=== PATIENT | male | born 1955 | race Caucasian/White ===

== ENCOUNTER 2019-05-15 11:17 | Emergency (ER) | payer BC ==
[2019-05-15] MEDS ORDERED: HYDRALAZINE HCL 20 MG/ML VIAL ONE (11:42)
[2019-05-15 12:05] LABS: Absolute Lymphocytes (CBC) 1.3 K/uL (0.7-4.9); Basophils % 0.7 % (0-1.3); Hematocrit 41.5 % (39.6-49.0); Lymphocytes % 23.6 % (15.3-44.8); MPV 9.2 fL (7.6-11.3); RBC Red Blood Cell Count 4.57 M/uL (4.33-5.43)
[2019-05-15 12:07] LABS: Protime INR 0.98
--- NOTE | 2019-05-15 12:07 | RAD REPORT ---
EXAM DESCRIPTION: CT - Head Brain Wo Cont - 05/15/2019 11:52 am CLINICAL HISTORY: Alteration of awareness/confusion COMPARISON: None TECHNIQUE: Computed axial tomography of the head was obtained. IV contrast was not requested. All CT scans are performed using dose optimization technique as appropriate and may include automated exposure control or mA/KV adjustment according to patient size. FINDINGS: An intracranial bleed is not seen . The ventricles are normal in caliber. No extra-axial fluid collection is noted. Fluid within the sinuses/ mastoids is not seen. IMPRESSION: No acute intracranial abnormality is seen. If patient's symptoms persist MRI of the bra in would be recommended.
[2019-05-15 12:15] LABS: ALT/SGPT 61 U/L (12-78); AST/SGOT 28 U/L (15-37); Albumin 4.2 g/dL (3.4-5.0); Alkaline Phosphatase 63 U/L (45-117); BUN Blood Urea Nitrogen 17 mg/dL (7-18); Bicarbonate 25 mmol/L (21-32); Bilirubin Direct 0.1 mg/dL (0-0.2); Bilirubin Total 0.5 mg/dL (0.2-1.0); Glucose Level 187 mg/dL (74-106); Magnesium 2.1 mg/dL (1.8-2.4); NT PRO-BNP 21 pg/mL (<125); Protein, Total 7.8 g/dL (6.4-8.2); Sodium Level 137 mmol/L (136-145); Troponin (Emerg Dept Use Only) < 0.02 ng/mL (0.0-0.045)
--- NOTE | 2019-05-15 12:22 | RAD REPORT ---
EXAM DESCRIPTION: Ania Single View05/15/2019 12:17 pm CLINICAL HISTORY: Hypertension COMPARISON: none FINDINGS: The lungs appear clear of acute infiltrate. The heart is normal size IMPRESSION: No acute abnormalities displayed
--- NOTE | 2019-05-15 13:03 | ER ---
Nurse's Notes [facility] Name: Mitchell Cortez Age: 63 yrs Sex: Male : 1955 Arrival Date: 05/15/2019 Time: 11:19 Bed 5 Private MD: Diagnosis: Essential (primary) hypertension Presentation: 05/15 11:27 Onset of symptoms was May 15, 2019. Risk Assessment: Do you want to hurt yourself tw2 or someone else? Patient reports no desire to harm self or others. Initial Sepsis Screen: Does the patient meet any 2 criteria? No. Patient's initial sepsis screen is negative. Does the patient have a suspected source of infection? No. Patient's initial sepsis screen is negative. Care prior to arrival: None. 11:27 Method Of Arrival: Ambulatory tw2 11:30 Presenting complaint: Patient states: I just dont feel right, family states last night la1 he was acting a little different, maybe a little slow to respond, and possibly a little more sweaty than normal when he was outside. Transition of care: patient was not received from another setting of care. 11:30 Acuity: MIA 3 la1 Historical: - Allergies: 11:22 No Known Allergies; tw2 - Home Meds: 11:30 None [Active]; tw2 - PMHx: 11:30 None; tw2 - Immunization history:: Adult Immunizations. - Social history:: Smoking status: . - Ebola Screening: : Patient denies travel to an Ebola-affected area in the 21 days before illness onset. Screenin:21 Abuse screen: Denies threats or abuse. Nutritional screening: No deficits noted. tw2 Tuberculosis screening: No symptoms or risk factors identified. Fall Risk Secondary diagnosis (15 points) impaired mobility. 11:31 VAN Screening: Arm Drift: Patient shows no arm weakness. la1 Assessment: 11:52 General: Appears in no apparent distress. comfortable, well groomed, Behavior is calm, ph cooperative, appropriate for age, Denies fever, feeling ill. Pain: Denies pain. Neuro: Level of Consciousness is awake, alert, obeys commands, Oriented to person, place, time, situation, Rubber Goods Inspector Tester are equal bilaterally Moves all extremities. Full function Speech is normal, Facial symmetry appears normal, Facial symmetry: tongue is midline, Pupils are PERRLA, Intact Reports " feeling weird". Denies dizziness. Cardiovascular: Denies chest pain, nausea, palpitations, shortness of breath, Capillary refill < 3 seconds in bilateral fingers Patient's skin is warm and dry. Respiratory: Airway is patent Respiratory effort is even, unlabored, Respiratory pattern is regular, symmetrical. GI: Derm: Skin is intact, is healthy with good turgor, Skin is pink, warm \\T\\ dry. Musculoskeletal: Circulation, motion, and sensation intact. Range of motion: intact in all extremities. 12:43 Reassessment: Patient appears in no apparent distress at this time. Patient and/or ph family updated on plan of care and expected duration. Pain level reassessed. Patient is alert, oriented x 3, equal unlabored respirations, skin warm/dry/pink. Systolic BP decreased from 170s to 160s after IV meds, see MAR, pt reports that he is feeling better, additional medication ordered to further decrease BP, pt resting comfortably. 13:16 Reassessment: Patient appears in no apparent distress at this time. Patient and/or tw2 family updated on plan of care and expected duration. Pain level reassessed. Patient is alert, oriented x 3, equal unlabored respirations, skin warm/dry/pink. Vital Signs: 11:27 BP 175 / 90; Pulse 71; Resp 18; Temp 97.7(O); Pulse Ox 98% on R/A; tw2 11:31 Weight 104.33 kg; Height 6 ft. 4 in. (193.04 cm); la1 11:56 BP 172 / 99; Pulse 73; Resp 18; Pulse Ox 99% on R/A; ph 12:18 BP 165 / 92; Pulse 63; Resp 16; Pulse Ox 98% on R/A; ph 12:46 BP 153 / 93; Pulse 64; Resp 18; Pulse Ox 97% on R/A; tw2 11:31 Body Mass Index 28.00 (104.33 kg, 193.04 cm) la1 NIH Stroke Scale Scores: 11:41 NIHSS Score: 0 8 ED Course: 11:19 Patient arrived in ED. mr 11:22 Sohan Fitzpatrick PA is PHCP. jr8 11:22 Je Bartholomew MD is Attending Physician. jr8 11:22 Gail Caban RN is Primary Nurse. ph 11:22 Arm band placed on. tw2 11:22 Bed in low position. Call light in reach. campus monitor on. Pulse ox on. NIBP on. tw2 11:31 Triage completed. la1 11:45 Initial lab(s) drawn, by me, sent to lab. Inserted saline lock: 20 gauge in right ph antecubital area, using aseptic technique. Blood collected. 11:53 CT Head Brain wo Cont In Process Unspecified. EDMS 12:17 XRAY Chest (1 view) In Process Unspecified. EDMS 12:27 EKG done, by generator technician. reviewed by Sohan FAM. sm3 12:45 No provider procedures requiring assistance completed. ph 13:16 IV discontinued, intact, bleeding controlled, No redness/swelling at site. Pressure tw2 dressing applied. Administered Medications: 12:02 Drug: hydrALAZINE 5 mg Route: IV; Rate: calculated rate; Site: right antecubital; ph 12:43 Drug: hydrALAZINE 5 mg Route: IV; Rate: calculated rate; Site: right antecubital; ph Outcome: 13:02 Discharge ordered by . jr8 13:16 Discharged to home ambulatory, with family. tw2 13:16 Condition: stable 13:16 Discharge instructions given to patient, family, Instructed on discharge instructions, follow up and referral plans. medication usage, Demonstrated understanding of instructions, follow-up care, medications, Prescriptions given X 1. 13:17 Patient left the ED. tw2 NIH Stroke Scale - NIH Stroke Score Date: 05/15/2019 Time: 11:41 Total Score = 0 1a. Level of Consciousness (LOC) - 0(Alert) 1b. Level of Consciousness (LOC) (Year \\T\\ Age) - 0(Both) 1c. LOC Commands (Open \\T\\ Closes Eyes/Derrick Worker Well Service) - 0(Both) 2. Best Gaze (Lateral Gaze Paresis) - 0(Normal) 3. Visual Field Loss - 0(No visual loss) 4. Facial Palsy - 0(Normal) 5a. Left Arm: Motor (10-second hold) - 0(No drift) 5b. Right Arm: Motor (10-second hold) - 0(No drift) 6a. Left Leg: Motor (5-second hold - always test supine) - 0(No drift) 6b. Right Leg: Motor (5-second hold - always test supine) - 0(No drift) 7. Limb Ataxia (finger/nose \\T\\ heel/amezquita - test with eyes open) - 0(Absent) 8. Sensory Loss (pinprick arms/legs/face) - 0(Normal) 9. Best Language: Aphasia (description/naming/reading) - 0(No aphasia) 10. Dysarthria (speech clarity - read or repeat words) - 0(Normal) 11. Extinction and Inattention (visual/tactile/auditory/spatial/personal) - 0(No abnormality) Initials: terri Signatures: Dispatcher [employer] VIVEK RamirezCamille bates mr NanetteSohan PA PA jr8 Anton Denson RN RN la1 Gail Caban RN RN Angela Severino RN RN tw2 Kamla Hays 3
--- NOTE | 2019-05-15 13:03 | EDPHYS ---
Physician Documentation [facility] Name: Mitchell Cortez Age: 63 yrs Sex: Male : 1955 Arrival Date: 05/15/2019 Time: 11:19 Bed 5 Private MD: ED Physician Je Bartholomew HPI: 05/15 11:41 This 63 yrs old Male presents to ER via Ambulatory with complaints of High jr8 Blood Pressure, Confusion. 11:41 Onset: The symptoms/episode began/occurred gradually, 1 day(s) ago. Associated signs jr8 and symptoms: Pertinent positives: confusion. Severity of symptoms: At its worst the blood pressure was moderate, in the emergency department the blood pressure is unchanged. The patient has not experienced similar symptoms in the past. The patient has not recently seen a physician. Family stated that patient was acting differently yesterday. More distent and was not recalling things as fast. Patient stated that he didn't feel right. General malaise like feeling. Checked BP at home this AM since he was not feeling better. Found to be elevated. No history of HTN. Came to ED at that time for evaluation . Historical: - Allergies: 11:22 No Known Allergies; tw2 - Home Meds: 11:30 None [Active]; tw2 - PMHx: 11:30 None; tw2 - Immunization history:: Adult Immunizations. - Social history:: Smoking status: . - Ebola Screening: : Patient denies travel to an Ebola-affected area in the 21 days before illness onset. ROS: 11:41 Eyes: Negative for injury, pain, redness, and discharge, ENT: Negative for injury, jr8 pain, and discharge, Neck: Negative for injury, pain, and swelling, Cardiovascular: Negative for chest pain, palpitations, and edema, Respiratory: Negative for shortness of breath, cough, wheezing, and pleuritic chest pain, Abdomen/GI: Negative for abdominal pain, nausea, vomiting, diarrhea, and constipation, Back: Negative for injury and pain, MS/Extremity: Negative for injury and deformity, Skin: Negative for injury, rash, and discoloration. 11:41 Constitutional: Positive for malaise. 11:41 Neuro: Positive for altered mental status, Negative for dizziness, gait disturbance, headache, hearing loss, loss of consciousness, numbness, seizure activity, speech changes, syncope, near syncope, tingling, tinnitus, tremor, visual changes, weakness. Exam: 11:41 Eyes: Pupils equal round and reactive to light, extra-ocular motions intact. Lids and jr8 lashes normal. Conjunctiva and sclera are non-icteric and not injected. Cornea within normal limits. Periorbital areas with no swelling, redness, or edema. ENT: Nares patent. No nasal discharge, no septal abnormalities noted. Tympanic membranes are normal and external auditory canals are clear. Oropharynx with no redness, swelling, or masses, exudates, or evidence of obstruction, uvula midline. Mucous membranes moist. Neck: Trachea midline, no thyromegaly or masses palpated, and no cervical lymphadenopathy. Supple, full range of motion without nuchal rigidity, or vertebral point tenderness. No Meningismus. Cardiovascular: Regular rate and rhythm with a normal S1 and S2. No gallops, murmurs, or rubs. Normal PMI, no JVD. No pulse deficits. Respiratory: Lungs have equal breath sounds bilaterally, clear to auscultation and percussion. No rales, rhonchi or wheezes noted. No increased work of breathing, no retractions or nasal flaring. Abdomen/GI: Soft, non-tender, with normal bowel sounds. No distension or tympany. No guarding or rebound. No evidence of tenderness throughout. Back: No spinal tenderness. No costovertebral tenderness. Full range of motion. Skin: Warm, dry with normal turgor. Normal color with no rashes, no lesions, and no evidence of cellulitis. MS/ Extremity: Pulses equal, no cyanosis. Neurovascular intact. Full, normal range of motion. Neuro: Awake and alert, GCS 15, oriented to person, place, time, and situation. Cranial nerves II-XII grossly intact. Motor strength 5/5 in all extremities. Sensory grossly intact. Cerebellar exam normal. Normal gait. Vital Signs: 11:27 BP 175 / 90; Pulse 71; Resp 18; Temp 97.7(O); Pulse Ox 98% on R/A; tw2 11:31 Weight 104.33 kg; Height 6 ft. 4 in. (193.04 cm); la1 11:56 BP 172 / 99; Pulse 73; Resp 18; Pulse Ox 99% on R/A; ph 12:18 BP 165 / 92; Pulse 63; Resp 16; Pulse Ox 98% on R/A; ph 12:46 BP 153 / 93; Pulse 64; Resp 18; Pulse Ox 97% on R/A; tw2 11:31 Body Mass Index 28.00 (104.33 kg, 193.04 cm) la1 NIH Stroke Scale Scores: 11:41 NIHSS Score: 0 MDM: 11:22 Patient medically screened. 8 13:00 Data reviewed: vital signs, nurses notes, lab test result(s), EKG, radiologic studies, jr8 CT scan, plain films. Data interpreted: Pulse oximetry: on room air is 97 %. Interpretation: normal. Counseling: I had a detailed discussion with the patient and/or guardian regarding: the historical points, exam findings, and any diagnostic results supporting the discharge/admit diagnosis, lab results, radiology results, the need for outpatient follow up, a family practitioner, to return to the emergency department if symptoms worsen or persist or if there are any questions or concerns that arise at home. Response to treatment: the patient's symptoms have markedly improved after treatment. ED course: Patient feeling much better after we decreased his BP. Will send him on medication. To f/u with PCP after the weekend. Return precautions given. Otherwise no acute findings on labs, ecg, or imaging. Patient happy and will f/u . 05/15 11:38 Order name: Basic Metabolic Panel; Complete Time: 12:23 05/15 11:38 Order name: CBC with Diff; Complete Time: 12:34 05/15 11:38 Order name: LFT's; Complete Time: 12:23 05/15 11:38 Order name: Magnesium; Complete Time: 12:23 05/15 11:38 Order name: NT PRO-BNP; Complete Time: 12:23 05/15 11:38 Order name: PT-INR; Complete Time: 12:46 05/15 11:38 Order name: Troponin (emerg Dept Use Only); Complete Time: 12:23 05/15 11:38 Order name: XRAY Chest (1 view); Complete Time: 12:23 05/15 11:38 Order name: EKG; Complete Time: 11:40 05/15 11:38 Order name: Cardiac monitoring; Complete Time: 11:40 05/15 11:38 Order name: EKG - Nurse/Tech; Complete Time: 12:26 05/15 11:38 Order name: CT Head Brain wo Cont; Complete Time: 12:23 05/15 11:38 Order name: IV Saline Lock; Complete Time: 12:00 05/15 11:38 Order name: Labs collected and sent; Complete Time: 12:00 05/15 11:38 Order name: O2 Per Protocol; Complete Time: 11:39 05/15 11:38 Order name: O2 Sat Monitoring; Complete Time: 11:39 Administered Medications: 12:02 Drug: hydrALAZINE 5 mg Route: IV; Rate: calculated rate; Site: right antecubital; ph 12:43 Drug: hydrALAZINE 5 mg Route: IV; Rate: calculated rate; Site: right antecubital; ph Disposition: 13:20 Co-signature as Attending Physician, Je Bartholomew MD I agree with the assessment and kdr plan of care. Disposition: 05/15/19 13:02 Discharged to Home. Impression: Essential (primary) hypertension. - Condition is Stable. - Discharge Instructions: Hypertension, Managing Your Hypertension. - Prescriptions for Lisinopril 10 mg Oral Tablet - take 1 tablet by ORAL route once daily; 20 tablet. - Medication Reconciliation Form, Thank You Letter, Antibiotic Education, Prescription Opioid Use form. - Follow up: Private Physician; When: 5 - 6 days; Reason: Recheck today's complaints, Continuance of care, Re-evaluation by your physician. - Problem is new. - Symptoms have improved. NIH Stroke Scale - NIH Stroke Score Date: 05/15/2019 Time: 11:41 Total Score = 0 1a. Level of Consciousness (LOC) - 0(Alert) 1b. Level of Consciousness (LOC) (Year \T\ Age) - 0(Both) 1c. LOC Commands (Open \T\ Closes Eyes/Kitchen Chef) - 0(Both) 2. Best Gaze (Lateral Gaze Paresis) - 0(Normal) 3. Visual Field Loss - 0(No visual loss) 4. Facial Palsy - 0(Normal) 5a. Left Arm: Motor (10-second hold) - 0(No drift) 5b. Right Arm: Motor (10-second hold) - 0(No drift) 6a. Left Leg: Motor (5-second hold - always test supine) - 0(No drift) 6b. Right Leg: Motor (5-second hold - always test supine) - 0(No drift) 7. Limb Ataxia (finger/nose \T\ heel/amezquita - test with eyes open) - 0(Absent) 8. Sensory Loss (pinprick arms/legs/face) - 0(Normal) 9. Best Language: Aphasia (description/naming/reading) - 0(No aphasia) 10. Dysarthria (speech clarity - read or repeat words) - 0(Normal) 11. Extinction and Inattention (visual/tactile/auditory/spatial/personal) - 0(No abnormality) Initials: jrLinda Signatures: Dispatcher [employer] EDMS Je Bartholomew MD MD [facility] Sohan Fitzpatrick PA PA jr8 Gail Caban RN RN Angela Severino RN RN tw2 Corrections: (The following items were deleted from the chart) 13:17 13:02 05/15/2019 13:02 Discharged to Home. Impression: Essential (primary) tw2 hypertension. Condition is Stable. Forms are Medication Reconciliation Form, Thank You Letter, Antibiotic Education, Prescription Opioid Use. Follow up: Private Physician; When: 5 - 6 days; Reason: Recheck today's complaints, Continuance of care, Re-evaluation by your physician. Problem is new. Symptoms have improved. jr8
[2019-05-15 13:31] VITALS: TEMP 97.7
[2019-05-15 13:35] VITALS: BP 153/93; O2SAT 97
--- NOTE | 2019-05-17 09:42 | EKG ---
Test Date: 2019-05-15 Test Time: 12:18:37 Coat Checker: SILVERIO MEASUREMENT RESULTS: Intervals: Rate: 70 NV: 160 QRSD: 92 QT: 392 QTc: 423 [place]: P: 0 NV: 160 QRS: 56 T: 51 INTERPRETIVE STATEMENTS: Normal sinus rhythm Normal ECG No previous ECG available for comparison Electronically Signed On 05-17-19 09:41:13 BAND SPLICER by Garrett Joseph
== END 2019-05-15 13:17 | disposition home or self-care (01) ==
LOC: ER 11:17
DX: I10 Essential (primary) hypertension (principal)
CPT/HCPCS: 93005; 85025; 80048; 36415; 83735; 85610; 80076; 84484; 83880; 70450; 71045; 96374; 99285; J0360

== ENCOUNTER 2024-08-28 05:53 | Day surgery (SDC) | payer OTHER ==
--- NOTE | 2024-08-22 10:48 | RAD REPORT ---
Procedure: Chest Pa And Lat (2 Views) HISTORY: Preop COMPARISON: 2019 FINDINGS: The lungs appear clear of acute infiltrate. No significant pleural effusion noted. The heart is normal size. IMPRESSION: No acute abnormality is displayed.
[2024-08-22 11:47] LABS: Absolute Eosinophils 0.2 K/uL (0-0.5); Absolute Monocytes 0.8 K/uL (0.1-1.3); Basophils % 0.5 % (0-1.3); Eosinophils % 4.8 % (0-4.4); Hematocrit 47.5 % (39.6-49.0); Hemoglobin 16.1 g/dL (13.6-17.9); Lymphocytes % 39.7 % (15.3-44.8); MCH 30.2 pg (27.0-35.0); MCHC 33.9 g/dL (32.0-36.0); MCV 89.2 fL (80-100); MPV 9.1 fL (7.6-11.3); Monocytes % 15.4 % (3.3-12.3); Neutrophils % 39.6 % (41.7-73.7); Nucleated Red Blood Cells % 0.2 % (0-0); Platelets 223 thou/uL (152-406); RBC Red Blood Cell Count 5.32 M/uL (4.33-5.43); Red Cell Distribution Width 13.9 % (12.1-15.2)
[2024-08-22 11:59] LABS: Anion Gap 8.1 mEq/L (5.0-15.0); Potassium 4.1 mEq/L (3.5-5.1)
[2024-08-22 12:15] LABS: PT Prothrombin Time 10.9 SECONDS (10.0-13.0); PTT, Activated Partial Thromb 27.5 SECONDS (24.3-36.9); Protime INR 0.95
[2024-08-28] MEDS: CELECOXIB 100 MG CAPSULE ONE (06:15)
[2024-08-28] MEDS: ACETAMINOPHEN 500 MG TAB ONE (06:15)
[2024-08-28] MEDS: Oxycodone HCl/Acetaminophen 5/325 MG TAB ONE (06:15)
[2024-08-28] MEDS: GABAPENTIN 100 MG CAP ONE (06:15)
[2024-08-28] MEDS: Ringers Lactate 1,000 ML IV ONE ×2 (06:20→09:30)
[2024-08-28] MEDS: MAGNESIUM SULFATE 1 gm IVPB 1 GM/100 ML BAG IV ONE (06:36)
[2024-08-28] MEDS: DEXMEDETOMIDINE HCL 200 MCG/2 ML VIAL ONE (06:36)
[2024-08-28] MEDS: BUPIVACAINE 0.25% PF 30 ML VIAL ONE (06:50)
[2024-08-28] MEDS: LIDOCAINE 1% MPF 5 ML VIAL ONE (06:50)
[2024-08-28] MEDS: BUPIVACAINE 0.5% PF 10 ML VIAL ONE ×2 (06:50→06:58)
[2024-08-28] MEDS: MIDAZOLAM HCL 2 MG/2 ML INJ ONE (06:50)
[2024-08-28] MEDS: FENTANYL CITR 100 MCG/2 ML ONE (06:51)
[2024-08-28] MEDS: EPINEPHRINE 1 MG/ML VIAL ONE (06:51)
[2024-08-28] MEDS: dexAMETHasone 10 MG/ML VIAL ONE ×2 (06:51→06:58)
[2024-08-28] MEDS: BUPIVACAINE 0.25% PF 10 ML VIAL ONE (06:58)
[2024-08-28] MEDS: TRANEXAMIC ACID 1,000 MG/10 ML VIAL IV ONE (07:22)
[2024-08-28] MEDS ORDERED: LIDOCAINE 2% MPF 5 ML VIAL ONE (07:51)
[2024-08-28] MEDS ORDERED: ONDANSETRON 4 MG/2 ML VIAL ONE (07:51)
[2024-08-28] MEDS ORDERED: dexAMETHasone 10 MG/ML VIAL ONE (07:51)
[2024-08-28] MEDS ORDERED: KETAMINE HCL IN 0.9 % NACL 50 MG/5 ML SYRINGE IV ONE (07:52)
[2024-08-28] MEDS ORDERED: propofoL 200 MG/20 ML VIAL IV ONE (07:52)
[2024-08-28] MEDS: CEFAZOLIN SODIUM 2 GM/VIAL ONE (08:00)
[2024-08-28] MEDS ORDERED: EPHEDRINE SULF 50 MG/ML VIAL ONE (08:25)
--- NOTE | 2024-08-28 11:10 | P.BOP ---
Preoperative diagnosis: Left knee osteoarthritis Postoperative diagnosis: Same Primary procedure: Left total knee arthroplasty Brick Baker: NONE,NONE Estimated blood loss: 40 cc Specimen: Left knee bone remnants Findings: See dictation Anesthesia: General Complications: None Implants: Biomet Peter persona 11 CR femur, H tibia, 10 CR poly, 35 patella Fluids & blood products: Per anesthesia record; tourniquet time 101 minutes at 300 mmHg Transferred to: Recovery Room Condition: Good
[2024-08-28] MEDS ORDERED: ACETAMINOPHEN 325 MG TABLET PO PRN (11:13)
[2024-08-28] MEDS ORDERED: ONDANSETRON 4 MG/2 ML VIAL IV PRN (11:13)
[2024-08-28] MEDS ORDERED: DOCUSATE NA 100 MG CAP PO PRN (11:13)
--- NOTE | 2024-08-28 11:13 | P.OP ---
Preoperative diagnosis: Left knee osteoarthritis Postoperative diagnosis: Same Primary procedure: Left total knee arthroplasty Anesthesia: General Estimated blood loss: 40 cc Specimen: Left knee bone remnants Findings: See dictation Operative Technique: Indication For Procedure: Mitchell is a 69 year-old male presenting to my clinic with signs, symptoms and x-ray findings consistent with severe left knee osteoarthritis. I discussed with the patient at length risks and benefits associated with operative and nonoperative treatment. He had failed conservative treatment measures and had significant difficulties with ADLs secondary to his pain. We discussed operative treatment and elected to proceed with left total knee arthroplasty. He expressed understanding and elected to p roceed with operative treatment. Description Of Procedure: After informed consent was obtained, the patient was identified in the preoperative holding area. The left lower extremity was marked. The patient was then taken to the PACU where he underwent a left lower extremity adductor canal block performed by Anesthesia. He was then taken to the operating room, transferred to the operating table in supine fashion, and placed under general anesthesia. The left lower extremity was then prepped and draped in usual sterile fashion. A time-out was initiated. The correct patient and procedure were confirmed and identified. The patient did receive his preoperative prophylactic antibiotics. The left lower extremity was then exsanguinated and tourniquet was inflated to 300 mmHg. Approximately 15 cm longitudinal incision was made centered over the anterior aspect of the left knee. Dissection was then taken to the extensor mechanism and a medial parapatellar arthrotomy was performed. The patella was everted and dislocated laterally and the knee was flexed in the fat pad. Medial and lateral meniscus and ACL were all excised exposing the distal femur. Excess hypertrophic synovium was also excised within the suprapatellar pouch. The patient had an MRI of his left knee preoperatively for surgical planning and creation of cutting blocks. The cutting block was then placed over the distal femur and pins were then placed. The distal femoral cutting block was then placed over the pins. An kilo wing was then used to ensure proper depth cut and the distal femur was then cut. The chamfer cutting guide was then placed over the distal end of the femur. Anterior, posterior cuts as well as anterior and posterior chamfer cuts were then made again confirming proper depth of the cut using an Kilo wing. Excess bone remnants were then sent to pathology for further evaluation. Next, attention was taken to the proximal tibia. A tibial jig and tibial cutting block was then placed on proximal aspect of the left tibia and locked into position. Pins were then placed and alignment guide was then used to confirm proper alignment of the cut and then coronal and sagittal planes. Once this was confirmed, the cutting jig was placed over the pins and the proximal tibia was cut. Sizing trays were then selected and size 10 mm spacer was used and there was good overall balance in flexion and extension. Next, the trial implants were then placed using the size 11 standard CR femur and a size H tibia and an 10 mm CR poly. There was overall good range of motion and good stability. The trial implants were then removed. The wound was then irrigated thoroughly with normal saline and the knee was then injected with 20 cc of 0.5% Marcaine both in the posterior capsule and medial and lateral gutters as well as quadriceps tendon and periosteum. The tibia was then punched. The femur was drilled. The cement was then prepared on the back table. Cement was then placed first on the tibial surface followed by size H tibia. Excess cement was removed with [place] elevators. Size 11 standard CR femur was then placed on the distal femur after cement was placed on the distal femur. Excess cement was then removed and a size 10 mm CR trial poly was then placed. The knee was held in extension as the cement hardened. Undersurface of the patella was prepared debriding osteophytes using rongeurs as well as osteophytes.. Cement was placed on the undersurface of the patella after it was cut and a size 35 patella was placed. Once the cement was hardened, the knee was ranged, there was good overall stability both in flexion, extension and as well as stability with varus and valgus stresses. Trial poly was then removed and a size 10 mm CR poly was then placed and locked into position. The knee was then ranged again. There was good overall range of motion both for flexion and extension with good stability. The wound was then irrigated again thoroughly with normal saline using pulse lavage. Tourniquet was let down. Hemostasis was achieved using Bovie electrocautery. Extensor mechanism was then approximated using a #1 Vicryl both in interrupted and running fashion. The fascia was then approximated using 0 Vicryl. Subcutaneous tissue was approximated with a 2-0 Vicryl. Skin was approximated using odilia. Sterile dressings were applied. The patient was awakened and transferred back in stable condition Complications: None Implants: Biomet Peter persona 11 CR femur, H tibia, 10 CR poly, 35 patella Fluids & blood products: Per anesthesia record Transferred to: Recovery Room Condition: Good
[2024-08-28] MEDS ORDERED: TRAMADOL HCL 50 MG TAB PO PRN (11:16)
[2024-08-28 11:45] LABS: Hematocrit 41.3 % (39.6-49.0); Hemoglobin 14.3 g/dL (13.6-17.9)
[2024-08-28 12:09] VITALS: O2SAT 100
--- NOTE | 2024-08-28 12:16 | RAD REPORT ---
EXAMINATION: XR LEFT KNEE CLINICAL INDICATION: Post Op TECHNIQUE: Multiple projections of the left knee were obtained. COMPARISON: No prior exam. FINDINGS: Left total knee arthroplasty has been performed. Hardware is in expected position. Skin sta ples are noted. Small amount of air in the joint.
[2024-08-28 12:26] VITALS: BMI 26.7
[2024-08-28] MEDS: FLU (Fluarix Triv) TS24-25(6MOS UP)/PF 45 MCG/0.5 ML Syringe IM ONE (14:00)
[2024-08-28] MEDS: CEFAZOLIN SODIUM 2 GM in NA CHLORIDE 0.9% 100 ML IVPB SCH (19:39)
[2024-08-28] MEDS: lisinopriL 10 MG TAB PO SCH (21:55)
[2024-08-28] MEDS: HYDROCODONE/APAP 7.5/325 MG TAB PO PRN (21:56)
[2024-08-29 06:26] LABS: Hematocrit 40.8 % (39.6-49.0); Hemoglobin 13.6 g/dL (13.6-17.9)
[2024-08-29] MEDS: ENOXAPARIN 30 MG/0.3 ML SQ SCH (06:30)
[2024-08-29] MEDS: CELECOXIB 100 MG CAPSULE PO SCH (08:01)
[2024-08-29 12:03] VITALS: BP 134/72; TEMP 98
== END 2024-08-29 12:22 | disposition home health service (06) ==
LOC: OR 05:53 → 4TH 11:13 → OR 08-29 12:22
PROVIDERS: ADMIT Orthopaedic Surgery Sports Medicine; ATTEND Orthopaedic Surgery Sports Medicine
PROC: 0SRD0J9 Replacement of Left Knee Joint with Synthetic Substitute, Cemented, Open Approach (ICD-10-PCS; principal; 2024-08-28 08:00)
DX: M17.12 Unilateral primary osteoarthritis, left knee (principal)
CPT/HCPCS: 85025; 80048; 36415 ×2; 85610; 88305; 88311; 85730; 85018; 85014; 71046; 73560; 97116; 97139; 97161; 27447; J3475; J2704; J2003 ×2; J2250; J3010; J1100 ×3; J0171; J2405; J7120 ×2; J1650